=== PATIENT | male | born 1940 | race Caucasian/White ===

== ENCOUNTER 2019-02-03 15:08 | Inpatient (IN) | payer MEDICARE, OTHER ==
[~2019-02-03] VITALS: Ht 165.1 cm; Wt 75.0 kg
[2019-02-03 16:14] LABS: BASOPHILS % (AUTO) 0.3 % (0-1); EOSINOPHILS # (AUTO) 0.6 X10'3 (0-0.9); EOSINOPHILS % (AUTO) 5.4 % (0-6); HEMATOCRIT 40.2 % (42.0-52.0); HEMOGLOBIN 13.5 g/dl (14.0-17.9); LYMPHOCYTES # (AUTO) 2.4 X10'3 (1.1-4.8); LYMPHOCYTES % (AUTO) 21.9 % (21-51); MEAN CORPUSCULAR HEMOGLOBIN 30.8 PG (27.0-31.0); MEAN CORPUSCULAR HGB CONC 33.7 g/dL (33.0-36.5); MEAN CORPUSCULAR VOLUME 91.4 FL (78-98); MEAN PLATELET VOLUME 8.1 FL (7.4-10.4); MONOCYTES # (AUTO) 0.9 X10'3 (0-0.9); MONOCYTES % (AUTO) 8.4 % (2-12); NEUTROPHILS # (AUTO) 7.1 X10'3 (1.8-7.7); PLATELET COUNT 233 X10'3 (140-440); WHITE BLOOD COUNT 11.1 X10'3 (4.5-11.0)
[2019-02-03 16:27] LABS: ALANINE AMINOTRANSFERASE 22 U/L (12-78); ALBUMIN 3.1 G/DL (3.4-5.0); ALBUMIN/GLOBULIN RATIO 0.9 (1.1-1.5); ALKALINE PHOSPHATASE 88 IU/L (46-116); ANION GAP 8 (8-16); ASPARTATE AMINO TRANSFERASE 16 U/L (10-37); BILIRUBIN,TOTAL 0.4 MG/DL (0.1-1.0); BLOOD UREA NITROGEN 30 MG/DL (7-18); CALCIUM 8.1 MG/DL (8.5-10.1); CREATININE 2.15 MG/DL (0.60-1.10); GLUCOSE 93 MG/DL (70-104); MAGNESIUM 2.1 MG/DL (1.5-2.4); POTASSIUM 4.4 MMOL/L (3.5-5.1); SODIUM 147 MMOL/L (135-145); TOTAL CARBON DIOXIDE 26.9 MMOL/L (24-32); TOTAL PROTEIN 6.7 G/DL (6.4-8.2); eGFR 30 ML/MIN
[2019-02-03 16:28] LABS: CHLORIDE 112 MMOL/L (99-107)
[2019-02-03] MEDS ORDERED: labetalol 20mg/4ml (5mg/ml) syringe IV ONE (16:40)
[2019-02-03 16:44] LABS: CLARITY,URINE CLEAR (Clear); COLOR,URINE YELLOW (Yellow); GLUCOSE, URINE NEGATIVE (Neg); KETONES,URINE NEGATIVE (Neg); LEUKOCYTE ESTERASE ,URINE NEGATIVE (Neg); NITRITES, URINE NEGATIVE (Neg); OCCULT BLOOD,URINE TRACE-LYSED (Neg); PROTEIN,URINE 100 mg/dl (Neg); UROBILINOGEN,URINE 0.2 E.U/dL (0.2-1.0)
[2019-02-03 16:45] LABS: UA COLLECTION TYPE URINAL
[2019-02-03 16:50] LABS: BACTERIA,URINE FEW /HPF (Neg); RBC,URINE 0-2 /HPF (0-2); WBC,URINE NONE SEEN /HPF (0-4)
[2019-02-03 16:51] LABS: SQUAMOUS EPITHELIAL CELL,UR FEW /LPF (FEW)
[2019-02-03] MEDS ORDERED: NO HOME MEDS (16:57)
[2019-02-03] MEDS ORDERED: acetaminophen 325mg tablet PO PRN (17:45)
[2019-02-03] MEDS ORDERED: ondansetron/PF 4mg/2ml inj IV PRN (17:45)
[2019-02-03] MEDS ORDERED: mag hydrox/Alum hydrox/simeth 30ml oral suspension PO PRN (17:45)
[2019-02-03] MEDS ORDERED: magnesium hydroxide 30ml (MOM) UD suspension PO PRN (17:45)
[2019-02-03 18:22] LABS: CHOL/HDL RATIO 7.9 (0.00-4.99); CHOLESTEROL 230 MG/DL (0-200); HDL CHOLESTEROL 29 MG/DL (35-60); LDL CHOLESTEROL 160 MG/DL (50-100); TRIGLYCERIDES 407 MG/DL (20-135)
[2019-02-03] MEDS: normal saline 1000ml 1,000 ML IV SCH (18:34)
--- NOTE | 2019-02-03 19:30 | NUR ---
Patient in room ORTHO 4012. I have received report from JARETT Sharif and had the opportunity to ask questions and assume patient care.
[2019-02-03] MEDS: heparin, porcine 5000 units/ml vial SQ SCH (19:46)
[2019-02-03 20:00] VITALS: BP 248/93
[2019-02-03] MEDS: hydrALAZINE 20mg/ml inj. IV PRN (20:49)
[2019-02-03 21:27] VITALS: BP 179/73
[2019-02-03 22:00] VITALS: BP 179/73
[2019-02-04] VITALS (7 sets, daily range): BP systolic 168–217; BP diastolic 53–94
[2019-02-04] MEDS: normal saline 1000ml 1,000 ML IV SCH ×2 (04:26→15:22)
[2019-02-04 05:46] LABS: BASOPHILS # (AUTO) 0.1 X10'3 (0-0.2); BASOPHILS % (AUTO) 1.3 % (0-1); EOSINOPHILS # (AUTO) 0.8 X10'3 (0-0.9); EOSINOPHILS % (AUTO) 7.7 % (0-6); HEMATOCRIT 36.1 % (42.0-52.0); HEMOGLOBIN 12.2 g/dl (14.0-17.9); LYMPHOCYTES # (AUTO) 2.9 X10'3 (1.1-4.8); LYMPHOCYTES % (AUTO) 26.9 % (21-51); MEAN CORPUSCULAR HEMOGLOBIN 30.4 PG (27.0-31.0); MEAN CORPUSCULAR HGB CONC 33.8 g/dL (33.0-36.5); MEAN CORPUSCULAR VOLUME 90.1 FL (78-98); MEAN PLATELET VOLUME 8.3 FL (7.4-10.4); MONOCYTES % (AUTO) 9.4 % (2-12); NEUTROPHILS # (AUTO) 5.9 X10'3 (1.8-7.7); NEUTROPHILS % (AUTO) 54.7 % (42-75); PLATELET COUNT 211 X10'3 (140-440); RED BLOOD COUNT 4.01 X10'6 (4.70-6.10); RED CELL DISTRIBUTION WIDTH 14.6 % (11.5-14.5); WHITE BLOOD COUNT 10.8 X10'3 (4.5-11.0)
[2019-02-04 06:05] LABS: ALBUMIN 2.7 G/DL (3.4-5.0); ANION GAP 8 (8-16); BLOOD UREA NITROGEN 31 MG/DL (7-18); BUN/CREATININE RATIO 15.5 (5.4-32.0); CALCIUM 7.9 MG/DL (8.5-10.1); CHLORIDE 112 MMOL/L (99-107); GLUCOSE 93 MG/DL (70-104); POTASSIUM 4.1 MMOL/L (3.5-5.1); SODIUM 144 MMOL/L (135-145); TOTAL CARBON DIOXIDE 23.8 MMOL/L (24-32); eGFR 33 ML/MIN
--- NOTE | 2019-02-04 06:19 | NUR ---
Problems reprioritized. Patient report given, questions answered & plan of care reviewed with JARETT Bone.
[2019-02-04] MEDS: aspirin 81mg tablet.DR PO SCH (07:13)
[2019-02-04] MEDS: atorvastatin 20mg tablet PO SCH (07:13)
[2019-02-04] MEDS: heparin, porcine 5000 units/ml vial SQ SCH ×2 (07:14→19:03)
--- NOTE | 2019-02-04 11:38 | NUR ---
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
[2019-02-04] MEDS ORDERED: amLODIPine 5mg tablet PO ONE (12:15)
[2019-02-04] MEDS: hydrALAZINE 20mg/ml inj. IV PRN ×2 (12:33→19:02)
--- NOTE | 2019-02-04 14:37 | NUR ---
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 TG 407 on admit. Pt not present during RD visit; written heart healthy ed w/ RD contact information left at bedside. Pt is receiving lipitor. Pt has mild weakness, no edema/wounds, current wt pt stated, and PO 100% avg meals meeting needs. Does not meet malnutrition criteria at this time. Addendum: 02/04/19 at [address] Amended: Links added.
--- NOTE | 2019-02-04 15:00 | NUR ---
Patient in room ORTHO 4012. I have received report from HILLARY DENSON and had the opportunity to ask questions and assume patient care.
--- NOTE | 2019-02-04 15:01 | NUR ---
Patient report given to Arie DENSON
[2019-02-04] MEDS: lisinopril 5mg tablet PO SCH (17:25)
--- NOTE | 2019-02-04 18:15 | NUR ---
Problems reprioritized. Patient report given, questions answered & plan of care reviewed with SALLY RN.
--- NOTE | 2019-02-04 18:30 | NUR ---
Received report from Arie DENSON. assumed care of patient.
[2019-02-05 00:16] VITALS: BP 172/53
[2019-02-05] MEDS: normal saline 1000ml 1,000 ML IV SCH (00:39)
[2019-02-05 02:00] VITALS: BP 200/69
[2019-02-05 06:00] VITALS: BP 171/67
--- NOTE | 2019-02-05 06:00 | NUR ---
Gave report to Cathi DENSON.
--- NOTE | 2019-02-05 06:30 | NUR ---
RECEIVED REPORT FROM SALLY DENSON
[2019-02-05 07:07] LABS: BASOPHILS # (AUTO) 0.1 X10'3 (0-0.2); BASOPHILS % (AUTO) 1.2 % (0-1); EOSINOPHILS # (AUTO) 0.7 X10'3 (0-0.9); EOSINOPHILS % (AUTO) 7.3 % (0-6); HEMATOCRIT 37.3 % (42.0-52.0); HEMOGLOBIN 12.5 g/dl (14.0-17.9); LYMPHOCYTES # (AUTO) 2.7 X10'3 (1.1-4.8); LYMPHOCYTES % (AUTO) 28.5 % (21-51); MEAN CORPUSCULAR HEMOGLOBIN 30.3 PG (27.0-31.0); MEAN CORPUSCULAR HGB CONC 33.6 g/dL (33.0-36.5); MEAN CORPUSCULAR VOLUME 90.2 FL (78-98); MEAN PLATELET VOLUME 8.7 FL (7.4-10.4); MONOCYTES % (AUTO) 10.1 % (2-12); NEUTROPHILS % (AUTO) 52.9 % (42-75); PLATELET COUNT 205 X10'3 (140-440); RED BLOOD COUNT 4.14 X10'6 (4.70-6.10); RED CELL DISTRIBUTION WIDTH 14.8 % (11.5-14.5); WHITE BLOOD COUNT 9.5 X10'3 (4.5-11.0)
[2019-02-05] MEDS: aspirin 81mg tablet.DR PO SCH (07:27)
[2019-02-05] MEDS: atorvastatin 20mg tablet PO SCH (07:27)
[2019-02-05] MEDS: lisinopril 5mg tablet PO SCH (07:28)
[2019-02-05] MEDS: heparin, porcine 5000 units/ml vial SQ SCH (07:29)
[2019-02-05 08:00] VITALS: BP 173/59
[2019-02-05] MEDS ORDERED: amLODIPine 5mg tablet PO SCH (08:00)
[2019-02-05 08:12] LABS: ALBUMIN 2.6 G/DL (3.4-5.0); ANION GAP 11 (8-16); BLOOD UREA NITROGEN 23 MG/DL (7-18); BUN/CREATININE RATIO 12.3 (5.4-32.0); CALCIUM 8.3 MG/DL (8.5-10.1); CHLORIDE 113 MMOL/L (99-107); CREATININE 1.87 MG/DL (0.60-1.10); GLUCOSE 90 MG/DL (70-104); SODIUM 146 MMOL/L (135-145); TOTAL CARBON DIOXIDE 21.9 MMOL/L (24-32); eGFR 35 ML/MIN
[2019-02-05] MEDS ORDERED: carvedilol 6.25mg tablet PO SCH (09:50)
[2019-02-05 10:00] VITALS: BP 173/59
[2019-02-05 11:48] VITALS: BP 166/65
[2019-02-05] MEDS ORDERED: ASPI-1071 PO (13:16)
[2019-02-05] MEDS ORDERED: CARV6.253 PO (13:16)
[2019-02-05] MEDS ORDERED: NOR5T PO (13:16)
[2019-02-05] MEDS ORDERED: LISI10TA4 PO (13:16)
[2019-02-05] MEDS ORDERED: ATOR20TA66 PO (13:16)
--- NOTE | 2019-02-05 14:00 | NUR ---
Patient was discharged iv and tele was removed from patient. Patient was alert and oriented at time of discharge. Patient [facility] that [facility] and see if he really needed all these medications patient is somewhat non compliant and might not take his medications when he is at home/
== END 2019-02-05 13:55 | disposition home health service (06) | DRG 304 ==
LOC: ER 15:09 → ORTHO 4S 19:42
PROVIDERS: ADMIT Family Medicine; ATTEND Family Medicine
DX: I16.0 Hypertensive urgency (principal); I63.9 Cerebral infarction, unspecified; N18.9 Chronic kidney disease, unspecified; F17.210 Nicotine dependence, cigarettes, uncomplicated; I12.9 Hypertensive chronic kidney disease with stage 1 through stage 4 chronic kidney disease, or unspecified chronic kidney disease; Z86.73 Personal history of transient ischemic attack (TIA), and cerebral infarction without residual deficits; Z91.19 Patient's noncompliance with other medical treatment and regimen
CPT/HCPCS: 36415; 70450; 70544; 70551; 80048; 80053; 80061; 81001; 82948; 83735; 84484; 85025; 85610; 87081; 93005; 93306; 93880; 96374; 97110; 97116; 97161; 97530; 99285; G0378; J0360; J1644; J3490; J7030

== ENCOUNTER 2019-02-10 19:34 | Inpatient (IN) | payer MEDICARE, OTHER ==
[~2019-02-10] VITALS: Ht 165.1 cm; Wt 76.0 kg
[~2019-02-10 19:34] MED LIST: ASPI-1071 PO; ATOR20TA66 PO; CARV6.253 PO; LISI10TA4 PO; NOR5T PO
--- NOTE | 2019-02-10 19:40 | NUR ---
CASH ROPER OPERATOR STATES STROKE SCALE 0, PLACE PT WEAKNESS/NOT STROKE ALERT.
--- NOTE | 2019-02-10 21:30 | NUR ---
TELE NEURO MD EVALUATING PT AT THIS TIME
[2019-02-10 21:59] LABS: BASOPHILS # (AUTO) 0.2 X10'3 (0-0.2); BASOPHILS % (AUTO) 1.5 % (0-1); EOSINOPHILS # (AUTO) 0.9 X10'3 (0-0.9); EOSINOPHILS % (AUTO) 8.8 % (0-6); HEMATOCRIT 41.4 % (42.0-52.0); LYMPHOCYTES % (AUTO) 28.2 % (21-51); MEAN CORPUSCULAR HEMOGLOBIN 30.9 PG (27.0-31.0); MEAN CORPUSCULAR HGB CONC 33.7 g/dL (33.0-36.5); MEAN CORPUSCULAR VOLUME 91.5 FL (78-98); MEAN PLATELET VOLUME 9.5 FL (7.4-10.4); MONOCYTES # (AUTO) 0.9 X10'3 (0-0.9); MONOCYTES % (AUTO) 8.8 % (2-12); NEUTROPHILS # (AUTO) 5.5 X10'3 (1.8-7.7); NEUTROPHILS % (AUTO) 52.7 % (42-75); PLATELET COUNT 220 X10'3 (140-440); RED BLOOD COUNT 4.53 X10'6 (4.70-6.10); RED CELL DISTRIBUTION WIDTH 14.7 % (11.5-14.5); WHITE BLOOD COUNT 10.5 X10'3 (4.5-11.0)
[2019-02-10] MEDS ORDERED: ASPI1CPM9 PO ×2 (22:11→22:15)
[2019-02-10 22:13] LABS: CLARITY,URINE CLEAR (Clear); COLOR,URINE YELLOW (Yellow); GLUCOSE, URINE NEGATIVE (Neg); KETONES,URINE NEGATIVE (Neg); LEUKOCYTE ESTERASE ,URINE NEGATIVE (Neg); NITRITES, URINE NEGATIVE (Neg); OCCULT BLOOD,URINE NEGATIVE (Neg); PH,URINE 5.5 (4.8-8.0); PROTEIN,URINE TRACE mg/dl (Neg); UROBILINOGEN,URINE 0.2 E.U/dL (0.2-1.0)
[2019-02-10 22:14] LABS: UA COLLECTION TYPE CLN CATCH MIDSTREAM
--- NOTE | 2019-02-10 22:19 | NUR ---
PT REQUESTING WATER AND FOOD. SHABNAM CHASE CLEARED TO EAT. SWALLOW TEST PASSED. PT GIVEN WATER, APPLESAUCE, AND TURKEY SANDWICH
[2019-02-10 22:30] LABS: PARTIAL THROMBOPLASTIN TIME 29 SECONDS (22-32)
[2019-02-10 22:38] LABS: ALANINE AMINOTRANSFERASE 24 U/L (12-78); ALBUMIN 3.4 G/DL (3.4-5.0); ALBUMIN/GLOBULIN RATIO 0.9 (1.1-1.5); ALKALINE PHOSPHATASE 88 IU/L (46-116); ANION GAP 7 (8-16); ASPARTATE AMINO TRANSFERASE 17 U/L (10-37); BILIRUBIN,TOTAL 0.4 MG/DL (0.1-1.0); BLOOD UREA NITROGEN 32 MG/DL (7-18); BUN/CREATININE RATIO 13.9 (5.4-32.0); CALCIUM 9.3 MG/DL (8.5-10.1); CHLORIDE 109 MMOL/L (99-107); GLUCOSE 87 MG/DL (70-104); POTASSIUM 4.7 MMOL/L (3.5-5.1); SODIUM 142 MMOL/L (135-145); TOTAL CARBON DIOXIDE 26.4 MMOL/L (24-32); TOTAL PROTEIN 7.3 G/DL (6.4-8.2); eGFR 28 ML/MIN
[2019-02-10 22:54] LABS: BACTERIA,URINE NONE SEEN /HPF (Neg); RBC,URINE 0-2 /HPF (0-2); WBC,URINE 0-4 /HPF (0-4)
[2019-02-10 22:55] LABS: HYALINE CASTS 0-3 /LPF (NEGATIVE); MUCUS STRANDS FEW /LPF (Neg); SQUAMOUS EPITHELIAL CELL,UR FEW /LPF (FEW)
--- NOTE | 2019-02-10 22:57 | NUR ---
CONFIRMED WITH SHABNAM THAT PT IS NOT GETTING BLOOD TRANSFUSION BUT NEEDS TYPE AND SCREEN PER STROKE ALERT PROTOCOL. LAB STATED THEY DO NOT HAVE ORDER FOR THE TYPE AND SCREEN. ON ORDERS LIST IT IS LISTED AND SHABNAM STATES TYPE AND SCREEN NEEDED
[2019-02-10] MEDS ORDERED: ondansetron/PF 4mg/2ml inj IV PRN (23:25)
[2019-02-10] MEDS ORDERED: mag hydrox/Alum hydrox/simeth 30ml oral suspension PO PRN (23:25)
[2019-02-10] MEDS ORDERED: magnesium hydroxide 30ml (MOM) UD suspension PO PRN (23:25)
[2019-02-10] MEDS ORDERED: acetaminophen 325mg tablet PO PRN (23:25)
[2019-02-11] VITALS (9 sets, daily range): BP systolic 132–182; BP diastolic 45–81
--- NOTE | 2019-02-11 02:45 | NUR ---
pT BROUG[facility] [employer] [facility], PT WAS UNABLE TO AMB TO BED, STOOD UP, VERY WEAK, C/O LEFT SIDED WEAKNESS, TRANSFERRED TO BED VIA W/C. FINISH MENDERJARETT VANEGAS, STATES HE WAS ABLE TO AMB WITH CANE IN ER AND SYMPTOMS ARE NEW. PT HAD BEEN SLEEPING SOUNDLY ON [employer]. PT TRANSFERRED TO BED, VERY WEAK AND NEURO ASSESSMENT DONE. barn operator ON PHONE CALLING NEURO. PT SYMPTOMS RESOLVING WHEN BACK IN BED WITH NO APPARENT RESIDUAL. STROKE RN TO COME ASSESS PT. Addendum: 02/11/19 at 0425 by Grover Betancourt RN Amended: Links added. Addendum: 02/11/19 at 0429 by Grover Betancourt RN RECEIVED PT AT 0145 NOT [id number]
--- NOTE | 2019-02-11 05:21 | NUR ---
CVA/TIA GREEN PACKET GIVEN TO PT. Addendum: 02/11/19 at 0521 by Grover Betancourt RN Amended: Links added.
--- NOTE | 2019-02-11 06:30 | NUR ---
Patient in room ORTHO 4022. I have received report from Zoila DENSON and had the opportunity to ask questions and assume patient care. Patient woke during report, denies needs at this time.
--- NOTE | 2019-02-11 06:53 | NUR ---
Problems reprioritized. Patient report given, questions answered & plan of care reviewed with JARETT Martínez. Addendum: 02/11/19 at 0653 by Grover Betancourt RN Amended: Links added.
[2019-02-11 07:13] LABS: BASOPHILS # (AUTO) 0.1 X10'3 (0-0.2); BASOPHILS % (AUTO) 0.8 % (0-1); EOSINOPHILS # (AUTO) 0.9 X10'3 (0-0.9); EOSINOPHILS % (AUTO) 9.3 % (0-6); HEMATOCRIT 36.8 % (42.0-52.0); HEMOGLOBIN 12.6 g/dl (14.0-17.9); LYMPHOCYTES # (AUTO) 3.1 X10'3 (1.1-4.8); LYMPHOCYTES % (AUTO) 31.8 % (21-51); MEAN CORPUSCULAR HEMOGLOBIN 30.7 PG (27.0-31.0); MEAN CORPUSCULAR HGB CONC 34.2 g/dL (33.0-36.5); MEAN CORPUSCULAR VOLUME 89.9 FL (78-98); MONOCYTES # (AUTO) 0.9 X10'3 (0-0.9); MONOCYTES % (AUTO) 9.8 % (2-12); NEUTROPHILS # (AUTO) 4.7 X10'3 (1.8-7.7); NEUTROPHILS % (AUTO) 48.3 % (42-75); PLATELET COUNT 222 X10'3 (140-440); RED CELL DISTRIBUTION WIDTH 14.4 % (11.5-14.5); WHITE BLOOD COUNT 9.7 X10'3 (4.5-11.0)
[2019-02-11 07:37] LABS: ALANINE AMINOTRANSFERASE 20 U/L (12-78); ALBUMIN 2.9 G/DL (3.4-5.0); ALBUMIN/GLOBULIN RATIO 0.9 (1.1-1.5); ALKALINE PHOSPHATASE 76 IU/L (46-116); ANION GAP 8 (8-16); ASPARTATE AMINO TRANSFERASE 12 U/L (10-37); BILIRUBIN,TOTAL 0.3 MG/DL (0.1-1.0); BLOOD UREA NITROGEN 34 MG/DL (7-18); BUN/CREATININE RATIO 15.2 (5.4-32.0); CALCIUM 8.3 MG/DL (8.5-10.1); CHLORIDE 110 MMOL/L (99-107); CREATININE 2.23 MG/DL (0.60-1.10); GLUCOSE 89 MG/DL (70-104); POTASSIUM 4.2 MMOL/L (3.5-5.1); SODIUM 145 MMOL/L (135-145); TOTAL CARBON DIOXIDE 26.9 MMOL/L (24-32); TOTAL PROTEIN 6.3 G/DL (6.4-8.2); eGFR 29 ML/MIN
[2019-02-11] MEDS: carvedilol 6.25mg tablet PO SCH ×2 (07:50→20:00)
[2019-02-11] MEDS: lisinopril 10 MG tablet PO SCH (07:50)
[2019-02-11] MEDS: amLODIPine 5mg tablet PO SCH (07:50)
[2019-02-11] MEDS: heparin, porcine 5000 units/ml vial SQ SCH ×2 (07:53→20:37)
[2019-02-11] MEDS ORDERED: atorvastatin 20mg tablet PO SCH (08:00)
[2019-02-11] MEDS ORDERED: aspirin 81mg tablet.DR PO SCH (08:00)
[2019-02-11] MEDS ORDERED: aspirin/dipyridamole 25mg/200mg SR. capsule PO SCH (08:00)
--- NOTE | 2019-02-11 12:06 | NUR ---
Received call from nurse discharge planner Jennie regarding pt admission last noc. Arrived to review and educate. Exam reveals a dysarthria with heel to pacheco on the left, otherwise benign. Bedside RN, Tegan reports ataxia with finger to nose on the left with her exam. Pt with multiple acute infarcts this admission. Pt here 1 week ago with left internal capsule stroke. Spoke with [employer] who reports roney rhythm with occasional PAC. Pt stable, diet ordered as pt passed swallow exam in the ED. Will follow.
--- NOTE | 2019-02-11 12:26 | NUR ---
Patient had 100 ml emesis and tele called and stated that the patient's heart rate changed to Second degree heart block Type 1 for short time. Notified Dr. Akbar who states to monitor and order EKG if needed for changes or chest pain. Will continue to monitor.
[2019-02-11 12:34] LABS: CHOL/HDL RATIO 6.5 (0.00-4.99); CHOLESTEROL 170 MG/DL (0-200); HDL CHOLESTEROL 26 MG/DL (35-60); LDL CHOLESTEROL 106 MG/DL (50-100); TRIGLYCERIDES 262 MG/DL (20-135)
--- NOTE | 2019-02-11 15:15 | NUR ---
Patient in room ELISA 346. I have received report from Tegan and had the opportunity to ask questions and assume patient care.
--- NOTE | 2019-02-11 15:42 | NUR ---
Pt arrived on the floor, tucked in, appears to be in good spirits, received a phone call and is able to state the correct time and floor that he is on.
--- NOTE | 2019-02-11 17:05 | NUR ---
PAGER ID: [phone] MESSAGE: Sangeeta Akbar, for Mr. Stewart now in room 4022A, he would like a nicotine patch 14mg. Please advise. Thank you, Kaley
--- NOTE | 2019-02-11 18:13 | NUR ---
Problems reprioritized. Patient report given, questions answered & plan of care reviewed with Elias Farfan
[2019-02-11] MEDS: nicotine 14mg patch - 24hr TD SCH (20:34)
[2019-02-12] VITALS (7 sets, daily range): BP systolic 116–174; BP diastolic 39–62
[2019-02-12 06:54] LABS: BASOPHILS % (AUTO) 0.3 % (0-1); EOSINOPHILS # (AUTO) 0.7 X10'3 (0-0.9); EOSINOPHILS % (AUTO) 6.5 % (0-6); HEMATOCRIT 35.8 % (42.0-52.0); HEMOGLOBIN 12.1 g/dl (14.0-17.9); LYMPHOCYTES # (AUTO) 3.1 X10'3 (1.1-4.8); LYMPHOCYTES % (AUTO) 30.1 % (21-51); MEAN CORPUSCULAR HGB CONC 33.9 g/dL (33.0-36.5); MEAN CORPUSCULAR VOLUME 91.4 FL (78-98); MEAN PLATELET VOLUME 9.8 FL (7.4-10.4); MONOCYTES % (AUTO) 9.5 % (2-12); NEUTROPHILS # (AUTO) 5.5 X10'3 (1.8-7.7); NEUTROPHILS % (AUTO) 53.6 % (42-75); PLATELET COUNT 215 X10'3 (140-440); RED BLOOD COUNT 3.91 X10'6 (4.70-6.10); RED CELL DISTRIBUTION WIDTH 14.6 % (11.5-14.5); WHITE BLOOD COUNT 10.3 X10'3 (4.5-11.0)
[2019-02-12 07:04] LABS: ALANINE AMINOTRANSFERASE 19 U/L (12-78); ALBUMIN 2.7 G/DL (3.4-5.0); ALBUMIN/GLOBULIN RATIO 0.8 (1.1-1.5); ALKALINE PHOSPHATASE 70 IU/L (46-116); ANION GAP 6 (8-16); ASPARTATE AMINO TRANSFERASE 14 U/L (10-37); BILIRUBIN,TOTAL 0.3 MG/DL (0.1-1.0); BLOOD UREA NITROGEN 33 MG/DL (7-18); BUN/CREATININE RATIO 15.1 (5.4-32.0); CALCIUM 8.2 MG/DL (8.5-10.1); CHLORIDE 110 MMOL/L (99-107); CREATININE 2.18 MG/DL (0.60-1.10); GLUCOSE 88 MG/DL (70-104); POTASSIUM 4.3 MMOL/L (3.5-5.1); SODIUM 144 MMOL/L (135-145); TOTAL PROTEIN 6.1 G/DL (6.4-8.2); eGFR 29 ML/MIN
[2019-02-12] MEDS: carvedilol 6.25mg tablet PO SCH ×2 (08:00→20:05)
[2019-02-12] MEDS: atorvastatin 20mg tablet PO SCH (09:48)
[2019-02-12] MEDS: amLODIPine 5mg tablet PO SCH (09:49)
[2019-02-12] MEDS: lisinopril 10 MG tablet PO SCH (09:49)
[2019-02-12] MEDS: aspirin 325mg tablet PO SCH (09:50)
[2019-02-12] MEDS: nicotine 14mg patch - 24hr TD SCH (09:50)
[2019-02-12] MEDS: heparin, porcine 5000 units/ml vial SQ SCH ×2 (09:50→20:05)
[2019-02-13 02:00] VITALS: BP 152/54
[2019-02-13 06:00] VITALS: BP 139/35
[2019-02-13 06:30] VITALS: BP 139/35
[2019-02-13 06:58] LABS: BASOPHILS # (AUTO) 0.1 X10'3 (0-0.2); BASOPHILS % (AUTO) 1.1 % (0-1); EOSINOPHILS # (AUTO) 0.8 X10'3 (0-0.9); EOSINOPHILS % (AUTO) 7.9 % (0-6); HEMATOCRIT 37.6 % (42.0-52.0); HEMOGLOBIN 12.6 g/dl (14.0-17.9); LYMPHOCYTES # (AUTO) 3.2 X10'3 (1.1-4.8); LYMPHOCYTES % (AUTO) 30.5 % (21-51); MEAN CORPUSCULAR HEMOGLOBIN 30.5 PG (27.0-31.0); MEAN CORPUSCULAR HGB CONC 33.6 g/dL (33.0-36.5); MEAN CORPUSCULAR VOLUME 90.8 FL (78-98); MEAN PLATELET VOLUME 9.2 FL (7.4-10.4); MONOCYTES # (AUTO) 1.2 X10'3 (0-0.9); MONOCYTES % (AUTO) 11.4 % (2-12); NEUTROPHILS # (AUTO) 5.1 X10'3 (1.8-7.7); NEUTROPHILS % (AUTO) 49.1 % (42-75); PLATELET COUNT 226 X10'3 (140-440); RED BLOOD COUNT 4.14 X10'6 (4.70-6.10); RED CELL DISTRIBUTION WIDTH 14.8 % (11.5-14.5); WHITE BLOOD COUNT 10.3 X10'3 (4.5-11.0)
[2019-02-13 07:16] LABS: ALANINE AMINOTRANSFERASE 21 U/L (12-78); ALBUMIN 2.9 G/DL (3.4-5.0); ALBUMIN/GLOBULIN RATIO 0.8 (1.1-1.5); ALKALINE PHOSPHATASE 74 IU/L (46-116); ANION GAP 8 (8-16); ASPARTATE AMINO TRANSFERASE 15 U/L (10-37); BILIRUBIN,TOTAL 0.4 MG/DL (0.1-1.0); BLOOD UREA NITROGEN 35 MG/DL (7-18); BUN/CREATININE RATIO 15.6 (5.4-32.0); CALCIUM 8.4 MG/DL (8.5-10.1); CHLORIDE 109 MMOL/L (99-107); CREATININE 2.25 MG/DL (0.60-1.10); GLUCOSE 82 MG/DL (70-104); POTASSIUM 4.1 MMOL/L (3.5-5.1); SODIUM 145 MMOL/L (135-145); TOTAL CARBON DIOXIDE 28.1 MMOL/L (24-32); TOTAL PROTEIN 6.7 G/DL (6.4-8.2); eGFR 28 ML/MIN
[2019-02-13] MEDS: carvedilol 6.25mg tablet PO SCH (08:00)
[2019-02-13] MEDS: atorvastatin 20mg tablet PO SCH (09:05)
[2019-02-13] MEDS: lisinopril 10 MG tablet PO SCH (09:05)
[2019-02-13] MEDS: heparin, porcine 5000 units/ml vial SQ SCH (09:06)
[2019-02-13] MEDS: aspirin 325mg tablet PO SCH (09:06)
[2019-02-13] MEDS: nicotine 14mg patch - 24hr TD SCH (09:06)
[2019-02-13] MEDS: amLODIPine 5mg tablet PO SCH (09:08)
[2019-02-13 10:00] VITALS: BP 146/50
--- NOTE | 2019-02-13 14:42 | NUR ---
Received discharge orders from Dr. Akbar for pt to transfer to [facility] at 1500 today. [facility] Saline Lock dc'd from [facility] with cannula intact. No redness/swelling at IV site. Bandaid applied to insertion site. Pt to transport via [facility] via w/c at 1500.
== END 2019-02-13 14:55 | DRG 65 ==
LOC: ER 19:34 → ED HOLD 23:24 → SUR 3N 02-11 01:45 → ORTHO 4S 02-11 15:22
PROVIDERS: ADMIT Internal Medicine; ATTEND Internal Medicine
DX: I63.89 Other cerebral infarction (principal); N18.4 Chronic kidney disease, stage 4 (severe); E78.5 Hyperlipidemia, unspecified; G89.29 Other chronic pain; I12.9 Hypertensive chronic kidney disease with stage 1 through stage 4 chronic kidney disease, or unspecified chronic kidney disease; M25.551 Pain in right hip; M54.5 Low back pain; Z86.73 Personal history of transient ischemic attack (TIA), and cerebral infarction without residual deficits; Z79.899 Other long term (current) drug therapy
CPT/HCPCS: 36415; 70450; 70544; 70551; 71045; 80053; 80061; 81001; 82948; 83721; 85025; 85610; 85730; 86885; 86900; 86901; 87081; 93005; 97110; 97116; 97162; 97530; 99285; G0378; J1644; J2405

== ENCOUNTER 2019-05-09 15:55 | Emergency (ER) | payer MEDICARE, OTHER ==
[~2019-05-09] VITALS: Ht 165.1 cm; Wt 80.0 kg
[~2019-05-09 15:55] MED LIST changes: +ASPI1CPM9 PO
[2019-05-09 16:38] LABS: BASOPHILS # (AUTO) 0.1 X10'3 (0-0.2); BASOPHILS % (AUTO) 1.2 % (0-1); EOSINOPHILS # (AUTO) 1.2 X10'3 (0-0.9); EOSINOPHILS % (AUTO) 11.6 % (0-6); HEMOGLOBIN 12.5 g/dl (14.0-17.9); LYMPHOCYTES % (AUTO) 28.6 % (21-51); MEAN CORPUSCULAR HEMOGLOBIN 31.1 PG (27.0-31.0); MEAN CORPUSCULAR HGB CONC 33.8 g/dL (33.0-36.5); MEAN CORPUSCULAR VOLUME 91.9 FL (78-98); MEAN PLATELET VOLUME 7.8 FL (7.4-10.4); MONOCYTES % (AUTO) 9.6 % (2-12); NEUTROPHILS # (AUTO) 5.1 X10'3 (1.8-7.7); PLATELET COUNT 255 X10'3 (140-440); RED BLOOD COUNT 4.02 X10'6 (4.70-6.10); RED CELL DISTRIBUTION WIDTH 14.5 % (11.5-14.5); WHITE BLOOD COUNT 10.4 X10'3 (4.5-11.0)
[2019-05-09 16:54] LABS: ALANINE AMINOTRANSFERASE 26 U/L (12-78); ALBUMIN 3.3 G/DL (3.4-5.0); ALBUMIN/GLOBULIN RATIO 0.8 (1.1-1.5); ALKALINE PHOSPHATASE 97 IU/L (46-116); ANION GAP 7 (8-16); ASPARTATE AMINO TRANSFERASE 20 U/L (10-37); BILIRUBIN,TOTAL 0.5 MG/DL (0.1-1.0); BLOOD UREA NITROGEN 19 MG/DL (7-18); CALCIUM 8.9 MG/DL (8.5-10.1); CHLORIDE 108 MMOL/L (99-107); CREATININE 2.11 MG/DL (0.60-1.10); GLUCOSE 86 MG/DL (70-104); SODIUM 143 MMOL/L (135-145); TOTAL CARBON DIOXIDE 28.1 MMOL/L (24-32); TOTAL PROTEIN 7.2 G/DL (6.4-8.2); eGFR 31 ML/MIN
[2019-05-09] MEDS ORDERED: FURO40TA4 PO (17:20)
[2019-05-09] MEDS ORDERED: furosemide 40mg tablet PO ONE (17:20)
[2019-05-09] MEDS ORDERED: furosemide 20MG tablet PO ONE (17:20)
[2019-05-09] MEDS ORDERED: POTA20TA19 PO (17:20)
[2019-05-09] MEDS ORDERED: LISI10TA4 PO (18:02)
[2019-05-09 18:18] VITALS: BP 186/72
== END 2019-05-09 18:20 | disposition home or self-care (01) ==
LOC: ER 15:56
DX: R60.0 Localized edema (principal); I12.9 Hypertensive chronic kidney disease with stage 1 through stage 4 chronic kidney disease, or unspecified chronic kidney disease; N28.9 Disorder of kidney and ureter, unspecified; Z86.73 Personal history of transient ischemic attack (TIA), and cerebral infarction without residual deficits; Z79.82 Long term (current) use of aspirin; Z79.899 Other long term (current) drug therapy
CPT/HCPCS: 36415; 71045; 80053; 83880; 84484; 85025; 93005; 99284